=== PATIENT | male | born 1970 | race Hispanic/Latino ===

== ENCOUNTER 2018-08-25 13:57 | Inpatient (IN) | payer MEDICARE ==
--- NOTE | 2018-08-25 14:31 | ED PDOC ---
HPI: Psych/Substance Abuse Chief Complaint (Provider): Psychiatric Evaluation History Per: Patient History/Exam Limitations: no limitations Onset/Duration Of Symptoms: Days Current Symptoms Are (Timing): Still Present Suicide/Self Injury Attempted (Context): None Associated Symptoms: Suicidal Thoughts Involuntary Hold By: None Additional Complaint(s): 48 y/o male presents to the ED complaining of feeling suicidal. States he is seeing images of the devil telling him to cut his wrists. States symptoms have been ongoing for 2 weeks. He was discharged from a psych [facility] in [place] 3 days ago and was at the [facility] today, where he informed staff of symptoms and 911 was called. Otherwise he denies any chest pain, SOB, headaches, or homicidal ideation. PMD: Unknown <Wero Sanchez - Last Filed: 08/25/18 17:20> <Charito Michaels - Last Filed: 08/26/18 15:41> Time Seen by Provider: 08/25/18 14:00 Chief Complaint (Nursing): Psychiatric Evaluation Supervising Attending Note - Attestation: I have personally seen and examined this patient.: No I have reviewed all pertinent clinical information, including history, physical exam and plan: Yes <Charito Michaels - Last Filed: 08/26/18 15:41> Past Medical History Reviewed: Historical Data, Nursing Documentation, Vital Signs Vital Signs: Last Vital Signs Temp 98.9 F 08/25/18 14:00 Pulse 112 H 08/25/18 14:00 Resp 16 08/25/18 14:00 BP 133/77 08/25/18 14:00 Pulse Ox 97 08/25/18 14:00 - Medical History PMH: Anxiety, Back Problems (spinal stenosis), COPD Comment Only: Schizophrenia (schizoaffective) Other PMH: Schizoaffective disorder - Surgical History Surgical History: Pacemaker - Family History Family History: States: No Known Family Hx <Wero Sanchez - Last Filed: 08/25/18 17:20> Vital Signs: Last Vital Signs Temp 97.5 F L 08/26/18 09:00 Pulse 84 08/26/18 09:00 Resp 18 08/26/18 09:00 BP 128/71 08/26/18 09:00 Pulse Ox 97 08/25/18 17:21 <Michaels,Charito F - Last Filed: 08/26/18 15:41> - Home Medications Home Medications: Ambulatory Orders Medication Instructions Recorded DULoxetine [Cymbalta] 20 mg PO Q12 08/25/18 Haloperidol [Haldol] 5 mg PO Q12 08/25/18 RX: Aspirin [Ecotrin] 81 mg PO DAILY 08/25/18 RX: Gabapentin [Neurontin] 800 mg PO Q8 08/25/18 RX: traZODone [Desyrel] 100 mg PO HS 08/25/18 - Allergies Allergies/Adverse Reactions: Allergies Allergy/AdvReac Type Severity Reaction Status Date / Time divalproex sodium Allergy RASH Verified 08/25/18 14:03 [From Depakote] Iodinated Contrast- Oral and Allergy RASH Verified 08/25/18 14:03 IV Dye Review of Systems ROS Statement: Except As Marked, All Systems Reviewed And Found Negative Constitutional: Negative for: Fever Cardiovascular: Negative for: Chest Pain Respiratory: Negative for: Shortness of Breath Neurological: Negative for: Headache Psych: Positive for: Suicidal ideation (and visual hallucinations). Negative f or: Other (homicidal ideation) <Wero Sanchez E - Last Filed: 08/25/18 17:20> Physical Exam - Reviewed Nursing Documentation Reviewed: Yes Vital Signs Reviewed: Yes - Physical Exam Appears: Positive for: Non-toxic, No Acute Distress Head Exam: Positive for: ATRAUMATIC, NORMOCEPHALIC Skin: Positive for: Normal Color, Warm, Dry Eye Exam: Positive for: Normal appearance Neck: Positive for: Normal, Painless ROM Cardiovascular/Chest: Positive for: Regular Rate, Rhythm, Other (Pacemaker to left side of chest). Negative for: Murmur Respiratory: Positive for: Normal Breath Sounds. Negative for: Accessory Muscle Use, Respiratory Distress Gastrointestinal/Abdominal: Positive for: Soft. Negative for: Tenderness, Distended Extremity: Positive for: Normal ROM. Negative for: Pedal Edema, Calf Tenderness Neurologic/Psych: Positive for: Alert, Oriented (x3) <Wero Sanchez E - Last Filed: 08/25/18 17:20> - Laboratory Results Result Diagrams: 08/25/18 12:30 08/25/18 12:30 - ECG ECG: Positive for: Interpreted By Me ECG Rhythm: Positive for: Sinus Rhythm. Negative for: ST/T Changes Rate: 96 O2 Sat by Pulse Oximetry: 97 (RA) Pulse Ox Interpretation: Normal - Radiology X-Ray: Read By Radiologist (CXR) X-Ray Interpretation: No Acute Disease, Other (pacemaker in place) - Progress ED Course And Treament: Pt. evaluated by Chandni GRIFFITHS who spoke with Dr. Bee and requests pt. to be admitted. <Wero Sanchez - Last Filed: 08/25/18 17:20> - Laboratory Results Result Diagrams: 08/25/18 12:30 08/25/18 12:30 <Charito Michaels F - Last Filed: 08/26/18 15:41> Medical Decision Making Medical Decision Making: Impression: 48 yo male with suicidal ideation Initial Plan: --EKG --Blood work --Urinalysis --Chest x-ray --Placed on 1:1 obs --Pending crisis evaluation Labs reviewed. Urine tox negative. Scribe Attestation: Documented by Razia Jaimes, acting as a scribe for Wero Sanchez PA-C. Provider Scribe Attestation: All medical record entries made by the Scribe were at my direction and personally dictated by me. I have reviewed the chart and agree that the record accurately reflects my personal performance of the history, physical exam, medical decision making, and the department course for this patient. I have also personally directed, reviewed, and agree with the discharge instructions and disposition. <Wero Sanchez - Last Filed: 08/25/18 17:20> Disposition - Patient ED Disposition Is Patient to be Admitted: Yes Counseled Patient/Family Regarding: Diagnosis - Disposition Disposition Time: 15:31 - Pt Status Changed To: Hospital Disposition Of: Inpatient - Admit Certification Admit to Inpatient:: After my assessment, the patient will require hospitalization for at least two midnights. This is because of the severity of symptoms shown, intensity of services needed, and/or the medical risk in this patient being treated as an outpatient. - POA Present On Arrival: None <Wero Sanchez - Last Filed: 08/25/18 17:20> <Charito Michaels - Last Filed: 08/26/18 15:41> - Clinical Impression Clinical Impression: Schizoaffective disorder, depressive type - Disposition Condition: STABLE - PA / DIRECTOR OF BUSINESS CONTINUITY / Resident Statement MD/DO has reviewed & agrees with the documentation as recorded. <Wero Sanchez - Last Filed: 08/25/18 17:20>
--- NOTE | 2018-08-25 15:16 | RAD ---
Date of service: 08/25/2018 HISTORY: clearance COMPARISON: No prior. FINDINGS: LUNGS: No active pulmonary disease. PLEURA: No significant pleural effusion identified, no pneumothorax apparent. CARDIOVASCULAR: Permanent pacemaker OSSEOUS STRUCTURES: No significant abnormalities. VISUALIZED UPPER ABDOMEN: Normal. OTHER FINDINGS: None. IMPRESSION: No active disease.
[2018-08-25 15:29] LABS: SQUAMOUS EPITHIAL < 1 /hpf (0-5); URINE BILIRUBIN NEGATIVE (NEGATIVE); URINE BLOOD NEGATIVE (NEGATIVE); URINE CLARITY CLEAR (Clear); URINE COLOR YELLOW (YELLOW); URINE GLUCOSE (UA) NEG (Normal); URINE LEUKOCYTE ESTERASE NEG Leu/uL (Negative); URINE PROTEIN NEGATIVE (NEGATIVE); URINE UROBILINOGEN 0.2-1.0 mg/dL (0.2-1.0)
[2018-08-25 15:31] LABS: BASO # 0.2 K/uL (0.0-0.2); EOS # 0.2 K/uL (0.0-0.7); HEMOGLOBIN 14.3 g/dL (12.0-18.0); LYMPH % 12.2 % (20.0-40.0); MEAN CORPUSCULAR HGB CONC 34.4 g/dL (33.0-37.0); MEAN PLATELET VOLUME 7.6 fl (7.2-11.7); MONO # 0.6 K/uL (0.0-0.8); MONO % 3.8 % (0.0-10.0); NEUT # 13.5 K/uL (1.8-7.0); RBC 4.62 Mil/uL (4.40-5.90); RED CELL DISTRIBUTION WIDTH 14.4 % (11.5-14.5); WHITE BLOOD COUNT 16.5 K/uL (4.8-10.8)
[2018-08-25 15:35] LABS: ALB/GLOB RATIO 1.2 (1.0-2.1); ALBUMIN 4.4 g/dL (3.5-5.0); ALT/SGPT 43 U/L (21-72); AST/SGOT 38 U/L (17-59); BLOOD UREA NITROGEN 10 mg/dl (9-20); CALCIUM 10.4 mg/dL (8.4-10.2); GFR NON-AFRICAN AMERICAN > 60
[2018-08-25 15:41] LABS: BARBITURATES, UR NEGATIVE (NEGATIVE); BENZODIAZEPINES, UR NEGATIVE (NEGATIVE); OPIATES, UR NEGATIVE (NEGATIVE); PHENCYCLIDINE, UR NEGATIVE (NEGATIVE)
[2018-08-25 17:20] VITALS: O2SAT 97
--- NOTE | 2018-08-25 18:24 | PCM.BM ---
<Tacos Lobato - Last Filed: 08/25/18 18:22> Treatment Plan Problems - Problems identified on initial assessmt Problem 1 Date Initiated: 08/25/18 Time Initiated: 18:23 Assessment reference: NA Status: Active Priority: 1 Treatment assets and liabiliti Patient Assests: adapts well, cooperative, self-reliant, ADL independent Patient Liabilities: financial problems, poor support system, other - Milieu Protocol Maintain good personal hygiene: daily Encourage regular showers, daily Remind patient to perform daily oral care, daily Assist patient to perform ADL's Maintain personal safety: every shift Educate patient to report safety concerns to staff, every shift Monitor environment for contraband/sharps Medication safety: Monitor for expected outcome, potential side effects: daily, Assess barriers to learning: daily, Assess readiness for medication education: daily <aXvier Syed - Last Filed: 08/28/18 21:41> Family Contact Family involvement: Famliy/SO not involved Family contact: Patient declines to allow family contact at present Family contact name: Pt denied. - Goals for Treatment Patient goals for treatment: Pt unable to formulate goals as he is still suicidal and wants to . Discharge/Continuing Care - Education Needs Education Needs: Patient Medication, Patient Diagnosis/Disease Process, Patient Coping Skills, Patient Placement options, Patient Community resources, Patient Aftercare Safety Plan - Discharge Discharge Criteria: Tolerates medication w/o severe side effects, Free of Suicidal thoughts, Free of paranoid thoughts, Normal sleep pattern, No longer exhibiting s/s of withdrawal, Reduction of target symptoms Discharge to:: Senior Living - Treatment Team Participation Discussed with Family/SO: No <Yue Berry - Last Filed: 08/29/18 15:50> Discharge/Continuing Care - Treatment Team Participation Patient/Family/SO Statement: 08/29/18 15:50 Patient was invited to tx team this morning. Pt. able to actively participate in discussion regarding tx goals. Pt. continued to report feelings of "rage" and "betrayal" towards former neighbors secondary to them having promised patients parents that they would care for him if something where to happen to them and failing to do so. Patient reported ongoing sxs of depression and passive suicidal ideations without plan or intent. Pt. able to contract for safety on 3NP. Pt. somewhat socially withdrawn but is visible on 3NP and is observed socializing appropriately with select peers. Pt. reported extensive hx of inpatient psychiatric hospitalizations (voluntary and involuntary). Pt identified recent homelessness and upcoming anniversary of mothers passing as primary stressors contributing to acute onset of sxs. Pt. expressed not wanting to stay [facility] and preferring to return to [facility] upon discharge. Pt. reports "preferring to live in [facility]" than staying in this area. Patient reported hx of outpatient mental health services with [facility]. Was Patient/Family/SO present at Treatment Team Meeting: Yes <Akhil Escobar - Last Filed: 09/01/18 11:54> - Diagnosis (1) Simple tics Status: Acute Interventions: pharmacotherapy 09/01/18 11:54
[2018-08-25] MEDS ORDERED: Alum-Mag Hydrox-Simethicone Susp (30 mL) PO PRN (20:07)
[2018-08-25] MEDS ORDERED: DiphenhydrAMINE 50 mg/ml Inj IM PRN (20:07)
[2018-08-25] MEDS ORDERED: Magnesium Hydroxide Susp 30 ml UD PO PRN (20:07)
--- NOTE | 2018-08-26 08:39 | CARD ---
APPROVED REPORT Date of service: 08/25/2018 EKG Measurement Heart [id number] <Conclusion> Normal sinus rhythm Normal Electrocardiogram
[2018-08-26 08:56] LABS: T4 9.18 ug/dl (5.5-11.0)
--- NOTE | 2018-08-26 11:56 | CP.PCM.CON ---
History of Present Illness - History of Present Illness History of Present Illness: called for medical consult for medical issues for psychiatric admission cc: no acute medical complaints HPI: 48 yo WM pmh of COPD and bradycardia here with psychiatric condition. he reports no additional physical/medical complaints. ROS: all others systems negative PMH: COPD bradycardia PSH: pacemaker 2010 cholecystectomy finger surgery FH: chf mother/father Soc H: Current heavy smoker wants to quit counsled to quit no drugs no alcohol Meds: reviewed Allergies: reviewed Review of Systems - Review of Systems All systems: reviewed and no additional remarkable complaints except Review of Systems: HPI Past Patient History - Past Social History Smoking Status: Heavy Smoker > 10 Cigarettes Daily - CARDIAC Hx Cardiac Disorders: Yes Hx Pacemaker: Yes (2010) - PULMONARY Hx Chronic Obstructive Pulmonary Disease (COPD): Yes (3 yrs) - NEUROLOGICAL Hx Neurological Disorder: No - HEENT Hx HEENT Problems: No - RENAL Hx Chronic Kidney Disease: No - ENDOCRINE/METABOLIC Hx Endocrine Disorders: No - HEMATOLOGICAL/ONCOLOGICAL Hx Blood Disorders: No - INTEGUMENTARY Hx Dermatological Problems: No - MUSCULOSKELETAL/RHEUMATOLOGICAL Hx Musculoskeletal Disorders: Yes (spinal stenosis) Hx Spinal Stenosis: Yes - GASTROINTESTINAL Hx Gall Bladder Disease: Yes (surgery 1999) - GENITOURINARY/GYNECOLOGICAL Hx Genitourinary Disorders: No - PSYCHIATRIC Hx Anxiety: Yes Hx Depression: Yes Hx Physical Abuse: No Hx Sexual Abuse: No Hx Substance Use: No - SURGICAL HISTORY Hx Surgeries: Yes Hx Open Heart Surgery: Yes (pace maker, 2010) Other/Comment: pacemaker - ANESTHESIA Hx Anesthesia: Yes Meds Allergies/Adverse Reactions: Allergies Allergy/AdvReac Type Severity Reaction Status Date / Time divalproex sodium Allergy RASH Verified 08/25/18 14:03 [From Depakote] Iodinated Contrast- Oral and Allergy RASH Verified 08/25/18 14:03 IV Dye - Medications Medications: Current Medications Acetaminophen (Tylenol 325mg Tab) 650 mg PO Q4 PRN PRN Reason: pain level 4-7 Al Hydrox/Mg Hydrox/Simethicone (Maalox Plus 30 Ml) 30 ml PO Q4 PRN PRN Reason: Dyspepsia Diphenhydramine HCl (Benadryl) 50 mg IM Q6 PRN PRN Reason: Extrapyramidal S/S Unable PO Diphenhydramine HCl (Benadryl) 50 mg PO Q6 PRN PRN Reason: Extrapyramidal Symptoms Diphenhydramine HCl (Benadryl) 50 mg PO HS PRN PRN Reason: Sleep Last Admin: 08/25/18 21:37 Dose: 50 mg Haloperidol (Haldol) 5 mg PO Q4 PRN PRN Reason: Agitation Last Admin: 08/26/18 11:27 Dose: 5 mg Haloperidol Lactate (Haldol) 5 mg IM Q4 PRN PRN Reason: Agitation, Unable to Take PO Lorazepam (Ativan) 1 mg IM Q8H PRN PRN Reason: Anxiety/Agitation,Unable PO Lorazepam (Ativan) 1 mg PO Q8H PRN PRN Reason: Anxiety/Agitation Magnesium Hydroxide (Milk Of Magnesia) 30 ml PO HS PRN PRN Reason: Constipation Physical Exam - Constitutional Appears: Well - Head Exam Head Exam: ATRAUMATIC - Eye Exam Eye Exam: Normal appearance - ENT Exam ENT Exam: Mucous Membranes Moist - Respiratory Exam Respiratory Exam: Clear to Auscultation Bilateral, NORMAL BREATHING PATTERN. absent: Rales, Rhonchi, Wheezes - Cardiovascular Exam Cardiovascular Exam: REGULAR RHYTHM, +S1, +S2 - GI/Abdominal Exam GI & Abdominal Exam: Normal Bowel Sounds, Soft. absent: Tenderness - Neurological Exam Neurological exam: Alert, Oriented x3 - Psychiatric Exam Psychiatric exam: Normal Affect - Skin Skin Exam: Normal Color Results - Vital Signs Recent Vital Signs: Last Vital Signs Temp 97.5 F L 08/26/18 09:00 Pulse 84 08/26/18 09:00 Resp 18 08/26/18 09:00 BP 128/71 08/26/18 09:00 Pulse Ox 97 08/25/18 17:21 - Labs Result Diagrams: 08/25/18 12:30 08/25/18 12:30 Labs: Laboratory Results - last 24 hr 08/25/18 08/25/18 08/25/18 12:30 12:30 12:30 WBC 16.5 H RBC 4.62 Hgb 14.3 Hct 41.5 MCV 90.0 MCH 31.0 MCHC 34.4 RDW 14.4 Plt Count 286 MPV 7.6 Neut % (Auto) 82.0 H Lymph % (Auto) 12.2 L [place] % (Auto) 3.8 Eos % (Auto) 1.0 Baso % (Auto) 1.0 Neut # (Auto) 13.5 H Lymph # (Auto) 2.0 [place] # (Auto) 0.6 Eos # (Auto) 0.2 Baso # (Auto) 0.2 Sodium 141 Potassium 4.4 Chloride 101 Carbon Dioxide 31 H Anion Gap 13 BUN 10 Creatinine 0.8 Est GFR ( Amer) > 60 Est GFR (Non-Af Amer) > 60 Random Glucose 94 Hemoglobin A1c Calcium 10.4 H Total Bilirubin 0.7 AST 38 ALT 43 Alkaline Phosphatase 78 Total Protein 7.9 Albumin 4.4 Globulin 3.5 Albumin/Globulin Ratio 1.2 Triglycerides Cholesterol LDL Cholesterol Direct HDL Cholesterol Thyroxine (T4) TSH 3rd Generation Urine Color Urine Clarity Urine pH Ur Specific [place] Urine Protein Urine Glucose (UA) Urine Ketones Urine Blood Urine Nitrate Urine Bilirubin Urine Urobilinogen Ur Leukocyte Esterase Urine RBC (Auto) Urine Microscopic WBC Ur Squamous Epith Cells Urine Opiates Screen Negative Urine Methadone Screen Negative Ur Barbiturates Screen Negative Ur Phencyclidine Scrn Negative Ur Amphetamines Screen Negative U Benzodiazepines Scrn Negative U Oth Cocaine Metabols Negative U Cannabinoids Screen Negative Alcohol, Quantitative < 10 08/25/18 08/26/18 08/26/18 12:30 08:10 08:10 WBC RBC Hgb Hct MCV MCH MCHC RDW Plt Count MPV Neut % (Auto) Lymph % (Auto) [place] % (Auto) Eos % (Auto) Baso % (Auto) Neut # (Auto) Lymph # (Auto) [place] # (Auto) Eos # (Auto) Baso # (Auto) Sodium Potassium Chloride Carbon Dioxide Anion Gap BUN Creatinine Est GFR ( Amer) Est GFR (Non-Af Amer) Random Glucose Hemoglobin A1c 5.9 Calcium Total Bilirubin AST ALT Alkaline Phosphatase Total Protein Albumin Globulin Albumin/Globulin Ratio Triglycerides 169 H Cholesterol 325 H LDL Cholesterol Direct 208 H HDL Cholesterol 69 Thyroxine (T4) 9.18 TSH 3rd Generation 2.38 Urine Color Yellow Urine Clarity Clear Urine pH 7.0 Ur Specific [place] 1.008 Urine Protein Negative Urine Glucose (UA) Neg Urine Ketones Negative Urine Blood Negative Urine Nitrate Negative Urine Bilirubin Negative Urine Urobilinogen 0.2-1.0 Ur Leukocyte Esterase Neg Urine RBC (Auto) < 1 Urine Microscopic WBC < 1 Ur Squamous Epith Cells < 1 Urine Opiates Screen Urine Methadone Screen Ur Barbiturates Screen Ur Phencyclidine Scrn Ur Amphetamines Screen U Benzodiazepines Scrn U Oth Cocaine Metabols U Cannabinoids Screen Alcohol, Quantitative - Imaging and Cardiology Chest x-ray Status: Image reviewed by me, Report reviewed by me Assessment & Plan - Assessment and Plan (Free Text) Assessment: HPI: 48 yo WM pmh of COPD and bradycardia here with psychiatric condition. he reports no additional physical/medical complaints. 1. Leucocytosis- unk cause will repeat labs 2. Tobacco abuse counsled to quit requesting nicotine patch 3. COPD not acute exacerbation proair prn
--- NOTE | 2018-08-26 19:04 | PCM.PSYCH ---
Initial Psychiatric Evaluation - Initial Psychiatric Evaluation Chief Complaint (in patient's own words): was given a bus ticket by hospital in [facility] because there are no shelters [place] Patient's Reaction to Hospitalization: signed in voluntarily History of Present Illness and Precipitating Events: pt reports hx of schizoaffective -bi-polar for many years, with trouble sleeping, has been staying in prison in [place], having suicidal ideations, ran out of medications, came to emergency room was hearing voices to cut his throat/cut his wrists. Current Medications: Active Medications Generic Name Dose Route Start Last Admin Trade Name Freq PRN Reason Stop Dose Admin Acetaminophen 650 mg 08/25/18 20:07 Tylenol 325mg Tab PO Q4 PRN pain level 4-7 Al Hydrox/Mg Hydrox/Simethicone 30 ml 08/25/18 20:07 Maalox Plus 30 Ml PO Q4 PRN Dyspepsia Albuterol 2 puff 08/26/18 12:06 Ventolin Hfa 90 Mcg/Actuation (8 G) INH Q12H PRN Shortness of Breath Aspirin 81 mg 08/27/18 09:00 Ecotrin PO DAILY DALIA Diphenhydramine HCl 50 mg 08/25/18 20:07 Benadryl IM Q6 PRN Extrapyramidal S/S Unable PO Diphenhydramine HCl 50 mg 08/25/18 20:07 Benadryl PO Q6 PRN Extrapyramidal Symptoms Diphenhydramine HCl 50 mg 08/25/18 20:10 08/25/18 21:37 Benadryl PO 50 mg HS PRN Administration Sleep Haloperidol 5 mg 08/25/18 20:07 08/26/18 11:27 Haldol PO 5 mg Q4 PRN Administration Agitation Haloperidol Lactate 5 mg 08/25/18 20:07 Haldol IM Q4 PRN Agitation, Unable to Take PO Lorazepam 1 mg 08/25/18 20:07 Ativan IM Q8H PRN Anxiety/Agitation,Unable PO Lorazepam 1 mg 08/25/18 20:07 Ativan PO Q8H PRN Anxiety/Agitation Magnesium Hydroxide 30 ml 08/25/18 20:07 Milk Of Magnesia PO HS PRN Constipation Nicotine 1 patch 08/26/18 12:15 08/26/18 13:21 Nicoderm Cq TD 1 patch DAILY DALIA Administration Past Psychiatric History - Past Psychiatric History Prior Professional Help: various inpt admission, suicidal ideations, past attempt cut wrist [facility] hospital: [facility] History of Abuse: defers History of ETOH/Drug Use: denies History of Family Illness: defers Pertinent Medical Hx (Current Medical&Sleep Prob, Allergies): Allergies Allergy/AdvReac Type Severity Reaction Status Date / Time divalproex sodium Allergy RASH Verified 08/25/18 14:03 [From Depakote] Iodinated Contrast- Oral and Allergy RASH Verified 08/25/18 14:03 IV Dye Aspirin [Ecotrin] 81 mg PO DAILY 08/25/18 DULoxetine [Cymbalta] 20 mg PO Q12 08/25/18 Gabapentin [Neurontin] 800 mg PO Q8 08/25/18 Haloperidol [Haldol] 5 mg PO Q12 08/25/18 traZODone [Desyrel] 100 mg PO HS 08/25/18 Review of Systems - Psychiatric Psychiatric: Abnormal Sleep Pattern, Anxiety, Depression, Hallucinations, Paranoia, Suicidal Ideation Additional comments: command hallucinations Mental Status Examination - Personal Presentation Personal Presentation: Looks older than stated age - Affect Affect: Constricted - Motor Activity Motor Activity: Psychomotor Agitation - Reliability in Providing Information Reliability in Providing Information: Fair - Formal Thought Process Formal Thought Process: Paranoia, Circumstantial - Obsessions/Compulsions Obsessions: No Compulsions: No - Cognitive Functions Orientation: Person, Place, Situation Sensorium: Alert Attention/Concentration: Easily distracted DSM 5 DX - DSM 5 DSM 5 Diagnosis: schizoaffective disorder bipolar type insomnia - Recommended/Plan of Treatment Treatment Recommendations and Plan of Treatment: inpt admission per attending vital signs and clinical observation per protocol and per clinical status (assess b/p possible s/s serotonin syndrome) prns per unit protocol hospitalist consult pt previous medications gabapentin 600mg po tid cymbalata 20mg po bid haldol 5mg po q12hrs trazodone 100m po hs discharge planning in progress Projected ELOS: 5-7 days Prognosis: guarded Discharge Plan and Discharge Criteria: safety - Smoking Cessation Smoking Cessation Initiated: Yes
[2018-08-26] MEDS ORDERED: GABAPENTIN 600 MG PO SCH (21:00)
[2018-08-27 08:24] LABS: BASO # 0.1 K/uL (0.0-0.2); BASO % 0.8 % (0.0-2.0); EOS # 0.2 K/uL (0.0-0.7); EOS % 2.1 % (0.0-4.0); HEMOGLOBIN 14.4 g/dL (12.0-18.0); LYMPH # 1.9 K/uL (1.0-4.3); LYMPH % 18.8 % (20.0-40.0); MEAN CELL VOLUME 88.9 fl (80.0-94.0); MEAN CORPUSCULAR HEMOGLOBIN 30.5 pg (27.0-31.0); MEAN CORPUSCULAR HGB CONC 34.3 g/dL (33.0-37.0); MEAN PLATELET VOLUME 7.6 fl (7.2-11.7); MONO # 0.5 K/uL (0.0-0.8); MONO % 4.8 % (0.0-10.0); NEUT # 7.3 K/uL (1.8-7.0); NEUT % 73.5 % (50.0-75.0); NRBC % 0.1 % (0.0-0.0); RBC 4.71 Mil/uL (4.40-5.90); RED CELL DISTRIBUTION WIDTH 14.6 % (11.5-14.5); WHITE BLOOD COUNT 9.9 K/uL (4.8-10.8)
--- NOTE | 2018-08-27 09:20 | PCM.PYCHPN ---
Psychiatric Progress Note - Psychiatric Progress Note Patient seen today, length of contact: pt seen and evaluated. Patient Chief Complaint: pt is still very anxious and paranoid and hears voice telling him to kill himself and denies any plan to hurt himself.pt is tolerating haldol,cymbalta and neurontin. Medication Change: No Medical Record Reviewed: Yes Mental Status Examination - Cognitive Function Orientation: Person, Place, Situation Concentration: Poor Association: Loose Fund of Knowledge: Poor - Mood Mood: Anxious - Affect Affect: Constricted - Formal Thought Process Formal Thought Process: Hallucinations, Paranoia, Circumstantial - Homicidal Ideation Homicidal Ideation: No Goal/Treatment Plan - Goal/Treatment Plan Progress Toward Problem(s) and Goals/Treatment Plan: will continue to engage pt in therapy and groups and titrate meds as needed tobstabilize the pt.
[2018-08-27] MEDS: Albuterol HFA 90 mcg/actuation (8 g) INH PRN (14:38)
--- NOTE | 2018-08-28 13:59 | PCM.PYCHPN ---
Psychiatric Progress Note - Psychiatric Progress Note Patient seen today, length of contact: pt seen and evaluated. Patient Chief Complaint: pt is still very anxious and paranoid and hears voice telling him to kill himself and denies any plan to hurt himself.pt is tolerating haldol,cymbalta and neurontin. Medication Change: No Medical Record Reviewed: Yes Mental Status Examination - Cognitive Function Orientation: Person, Place, Situation Concentration: Poor Association: Loose Fund of Knowledge: Poor - Mood Mood: Anxious - Affect Affect: Constricted - Formal Thought Process Formal Thought Process: Hallucinations, Paranoia, Circumstantial - Homicidal Ideation Homicidal Ideation: No Goal/Treatment Plan - Goal/Treatment Plan Progress Toward Problem(s) and Goals/Treatment Plan: pt has been started on haldol 5 mg bid and will continue to engage pt in therapy and groups and titrate meds as needed tobstabilize the pt.
--- NOTE | 2018-08-29 15:58 | PCM.PYCHPN ---
Psychiatric Progress Note - Psychiatric Progress Note Patient seen today, length of contact: PT EVALUATED, DISCUSSED WITH TEAM CHART REVIEWED Patient Chief Complaint: It is hard for me to control my temper Problems Identified/Issues Discussed: pt evaluated with treatment team, reported improvement of the tics when started on haldol, pt however continues to report episodes of edginess and poor impulse control, stated not feeling that neurontin is helping with mood stabilization, discussed starting trileptal with gradual titration as pt is allergic to depakote, disussed with pt referral to anger mangement therapy on discharge no reported side effects of medications, pt denied any current suicidal or homicidal ideation DSM 5 Symptoms Update: tourette disorder impulse control disorder Medication Change: Yes (start trileptal 150mg bid ) Medical Record Reviewed: Yes Mental Status Examination - Cognitive Function Orientation: Person, Place, Situation Attention: WNL Concentration: WNL Association: WNL Fund of Knowledge: Poor Decription of patient's judgement and insights: partial insight, poor judgment - Mood Mood: Anxious - Affect Affect: Constricted - Formal Thought Process Formal Thought Process: Hallucinations, Paranoia, Circumstantial - Suicidal Ideation Suicidal Ideation: No - Homicidal Ideation Homicidal Ideation: No Goal/Treatment Plan - Goal/Treatment Plan Need for Continued Stay: Discharge may exacerbated symptoms Progress Toward Problem(s) and Goals/Treatment Plan: continue with haldol and neurontin start trileptal 150mg bid and increase gradually monitor pt for psychopharmacological effects and side effect profile
--- NOTE | 2018-08-30 17:34 | PCM.PYCHPN ---
Psychiatric Progress Note - Psychiatric Progress Note Patient seen today, length of contact: PT EVALUATED, DISCUSSED WITH TEAM CHART REVIEWED Patient Chief Complaint: It still feel edgy and irritable Problems Identified/Issues Discussed: pt evaluated with treatment team, reported improvement of the tics when started on haldol, pt however continues to report episodes of edginess and poor impulse control, stated not feeling that neurontin is helping with mood stabilization, discussed starting trileptal with gradual titration as pt is allergic to depakote, disussed with pt referral to anger mangement therapy on discharge no reported side effects of medications, pt denied any current suicidal or homicidal ideation DSM 5 Symptoms Update: pt evaluated, reported continues to feel edgy and irritable with poor impulse control, discussed increasing trileptal , no reported side effects. CBT provided discussed coping skills with stress, also discussed referral to anger management on discharge pt denied command hallucinations denied suicidal ideation Medication Change: Yes (increase trileptal 300 mg bid ) Medical Record Reviewed: Yes Mental Status Examination - Cognitive Function Orientation: Person, Place, Situation Attention: WNL Concentration: WNL Association: WNL Fund of Knowledge: Poor Decription of patient's judgement and insights: partial insight, poor judgment - Mood Mood: Anxious - Affect Affect: Constricted - Speech Speech: Soft, Pressured - Formal Thought Process Formal Thought Process: Hallucinations, Paranoia, Circumstantial - Suicidal Ideation Suicidal Ideation: No - Homicidal Ideation Homicidal Ideation: No Goal/Treatment Plan - Goal/Treatment Plan Need for Continued Stay: Discharge may exacerbated symptoms Progress Toward Problem(s) and Goals/Treatment Plan: continue with haldol and neurontin increase trileptal 300mg bid and increase gradually monitor pt for psychopharmacological effects and side effect profile
[2018-08-30] MEDS: Albuterol HFA 90 mcg/actuation (8 g) INH PRN (21:07)
--- NOTE | 2018-08-31 17:05 | PCM.PYCHPN ---
Psychiatric Progress Note - Psychiatric Progress Note Patient seen today, length of contact: PT EVALUATED, DISCUSSED WITH TEAM CHART REVIEWED Patient Chief Complaint: It still feel down and irritable Problems Identified/Issues Discussed: pt evaluated with treatment team, reported continues to have auditory hallucinations non command type , continues to report episodes of edginess and poor impulse control, , discussed increasing trileptal to 300mg bid , disussed with pt referral to anger mangement therapy on discharge no reported side effects of medications, pt denied any current suicidal or homicidal ideation DSM 5 Symptoms Update: tourette syndrome impulse control disorder Medication Change: No (increase trileptal 300 mg bid ) Medical Record Reviewed: Yes Mental Status Examination - Cognitive Function Orientation: Person, Place, Situation Attention: WNL Concentration: WNL Association: WNL Fund of Knowledge: Poor Decription of patient's judgement and insights: partial insight, poor judgment - Mood Mood: Anxious - Affect Affect: Constricted - Speech Speech: Soft, Pressured - Formal Thought Process Formal Thought Process: Hallucinations, Paranoia, Circumstantial - Suicidal Ideation Suicidal Ideation: No - Homicidal Ideation Homicidal Ideation: No Goal/Treatment Plan - Goal/Treatment Plan Need for Continued Stay: Discharge may exacerbated symptoms Progress Toward Problem(s) and Goals/Treatment Plan: continue with haldol and neurontin trileptal 300mg bid and increase gradually monitor pt for psychopharmacological effects and side effect profile
[2018-08-31 18:11] VITALS: RESP 18; TEMP 97.7
[2018-09-01] MEDS: Albuterol HFA 90 mcg/actuation (8 g) INH PRN (08:38)
[2018-09-01 09:32] VITALS: BP 108/63; PULSE 70
--- NOTE | 2018-09-01 12:12 | PCM.PYCHPN ---
Psychiatric Progress Note - Psychiatric Progress Note Patient seen today, length of contact: PT EVALUATED, DISCUSSED WITH TEAM CHART REVIEWED Patient Chief Complaint: I am less depressed and I am not hearing the voices Problems Identified/Issues Discussed: pt evaluated , seen more visible on the unit, interacting with other patients, reported feeling less depressed and mood more stable with trileptal ,reported clearing off of the auditory hallucinations no reported side effects of medications, pt denied any current suicidal or homicidal ideation DSM 5 Symptoms Update: tourette syndrome impulse control disorder borderline intellectual function Medication Change: No Medical Record Reviewed: Yes Mental Status Examination - Cognitive Function Orientation: Person, Place, Situation Attention: WNL Concentration: WNL Association: WNL Fund of Knowledge: Poor Decription of patient's judgement and insights: partial insight, poor judgment - Mood Mood: Anxious - Affect Affect: Constricted - Speech Speech: Soft, Pressured - Formal Thought Process Formal Thought Process: Circumstantial Psychotic Thoughts and Behaviors: pt denied any current psychotic symptoms, non elicited - Suicidal Ideation Suicidal Ideation: No - Homicidal Ideation Homicidal Ideation: No Goal/Treatment Plan - Goal/Treatment Plan Need for Continued Stay: Discharge may exacerbated symptoms Progress Toward Problem(s) and Goals/Treatment Plan: continue with haldol and neurontin trileptal 300mg bid and increase gradually monitor pt for psychopharmacological effects and side effect profile social services director arranging with caser in for placement at [facility] Estimated Date of D/C: 09/02/18
--- NOTE | 2018-09-02 10:01 | PCM.PYCHDC ---
Mental Status Examination - Mental Status Examination Orientation: Person, Place, Situation Memory: Intact Mood: Neutral Affect: Constricted Speech: Appropriate Attention: WNL Concentration: WNL Association: WNL Fund of Knowledge: WNL Formal Thought Process: No Impairment Description of patient's judgement and insight: partial insight, poor judgment Psychotic Thoughts and Behaviors: pt denied any current psychotic symptoms, non elicited Suicidal Ideation: No Current Homicidal Ideation?: No Discharge Summary - Discharge Note Reason for Hospitalization: pt reports hx of schizoaffective -bi-polar for many years, with trouble sleeping, has been staying in long term in [place], having suicidal ideations, ran out of medications, came to emergency room was hearing voices to cut his throat/cut his wrists. Consultations:: List each consultation separately and include: 1. Reason for request. 2. Findings. 3. Follow-up Summary of Hospital Course include:: 1. Description of specific treatment plan utilized for patients during their course of treatmen. 2. Summarize the time- course for resolution of acute symptoms and/or regressed behaviors. 3. Describe issues identified and worked on during hospitalization. 4. Describe medication utilized. 5. Describe medical problems identified and treated. 6. Reassessment of suicide risk Summary of Hospital Course: pt on admission was started on haldol, it was increased to 5mg bid pt reported episodes of poor impulse contropl was continued on neurontin and cymbalta, pt was also started on trileptal 300mg bid no reported side effects of medications pt reported clearing of of the auditory hallucinations on discharge mental status was stable pt denied any current suicidal or homicidal ideation denied perceptual disturbances - Diagnosis (1) Simple tics Current Visit: Yes Status: Acute - Final Diagnosis (DSM 5) Condition upon Discharge: STABLE DSM 5: tourette disorder schizoaffective disorder Disposition: HOME/ ROUTINE Follow-up Treatment Plan: continue with haldol and neurontin trileptal 300mg bid and increase gradually monitor pt for psychopharmacological effects and side effect profile perinatal social worker arranging with major case detective for placement at boarding home Prescriptions/Medication Reconciliation: DULoxetine [Cymbalta] 20 mg PO Q12 30 Days #30 ecc Gabapentin [Neurontin] 600 mg PO 0600,1400,2200 30 Days #90 tab Haloperidol [Haldol] 5 mg PO BID 30 Days #60 tab Nicotine 21 mg/24 hr [Nicoderm Cq] 1 patch TD DAILY 30 Days #30 patch OXcarbazepine [Trileptal] 300 mg PO BID 30 Days #60 tab traZODone [Desyrel] 100 mg PO HS 30 Days #30 tab - Smoking Cessation Smoking Cessation Medication prescribed: Yes - Antipsychotic Medications Pt discharged on 2 or more routine antipsychotic medications: No
== END 2018-09-02 16:03 | disposition home or self-care (01) | DRG 92 ==
LOC: H.ER 13:57 → H.ERHOLD 15:57 → H.PSYCH 17:59
PROVIDERS: ADMIT Psychiatry & Neurology Psychiatry; ATTEND Psychiatry & Neurology Psychiatry
PROC: GZHZZZZ Group Psychotherapy (ICD-10-PCS; principal; 2018-08-25)
DX: F95.2 Tourette's disorder (principal); R45.851 Suicidal ideations; F63.9 Impulse disorder, unspecified; Z59.0 Homelessness; F25.0 Schizoaffective disorder, bipolar type; G47.00 Insomnia, unspecified; J44.9 Chronic obstructive pulmonary disease, unspecified; Z91.041 Radiographic dye allergy status; M48.00 Spinal stenosis, site unspecified